=== PATIENT | female | born 2000 | race African-American/Black ===

== ENCOUNTER 2021-03-30 21:07 | Emergency (ER) | payer MEDICAID ==
[~2021-03-30] VITALS: Ht 160 cm; Wt 72.7 kg
[2021-03-30 21:21] VITALS: BP 122/81
== END 2021-03-30 23:44 | disposition home or self-care (01) ==
LOC: ER 21:07
DX: R07.89 Other chest pain (principal); F41.9 Anxiety disorder, unspecified
CPT/HCPCS: 93005; 99283